=== PATIENT | female | born 1995 | race Two or more races ===

== ENCOUNTER 2017-04-29 19:57 | Outpatient (CLI) | payer OTHER ==
[2017-04-29] MEDS ORDERED: IRON18 MG PO (21:46)
[2017-04-29] MEDS ORDERED: PRENATAL 19 TA1 EACH PO (21:46)
== END 2017-04-30 13:42 | disposition home or self-care (01) ==
LOC: OBS/DEL 19:57
DX: O23.43 Unspecified infection of urinary tract in pregnancy, third trimester (principal); O60.03 Preterm labor without delivery, third trimester

== ENCOUNTER 2017-05-01 00:11 | Inpatient (IN) | payer OTHER ==
[~2017-05-01] VITALS: Ht 175.3 cm; Wt 94.8 kg
[~2017-05-01 00:11] MED LIST: IRON18 MG PO; PRENATAL 19 TA1 EACH PO
== END 2017-05-03 15:38 | DRG 775 ==
LOC: LDR 00:11 → OB/GYN 03:01
PROC: 10E0XZZ Delivery of Products of Conception, External Approach (ICD-10-PCS; principal; 2017-05-01)
PROC: 4A1HXCZ Monitoring of Products of Conception, Cardiac Rate, External Approach (ICD-10-PCS; 2017-05-01)
PROC: 4A033R1 Measurement of Arterial Saturation, Peripheral, Percutaneous Approach (ICD-10-PCS; 2017-05-01)
DX: O60.14X0 Preterm labor third trimester with preterm delivery third trimester, not applicable or unspecified (principal); O42.013 Preterm premature rupture of membranes, onset of labor within 24 hours of rupture, third trimester; Z3A.36 36 weeks gestation of pregnancy; Z37.0 Single live birth